=== PATIENT | female | born 1985 | race Two or more races ===

== ENCOUNTER 2018-01-19 23:51 | Emergency (ER) | payer BC ==
--- NOTE | 2018-01-20 00:33 | OBHP ---
Datetime: 01/20/2018 00:28 IP Adm Impression: Term, intrauterine IP Admit Plan: Discharge home Admit Comment, IP Provider: at 39weks came with c/o lof on coughing, no ctxs, vb,+fm. pt has be en on /off coighing obhc primi pmh den'med pnv all nkda psh de soch ee neg pooling, neg nitra a/p at 39week r/o rom dc home labor g po hy f/u omd in 2 day Pelvic Type - PN: Adequate Extremities - PN: Normal Abdomen - PN: Normal Back - PN: Normal Breast - PN: Normal Lungs - PN: Normal Heart - PN: Normal Thyroid - PN: Normal Neurologic - PN: Normal HEENT - PN: Normal General - PN: Normal FHR - Baseline A Provider: 130 Contraction Comments Provider: none EGA AdmitDate IP: 39.0 Vital Signs Provider: Reviewed; Within Normal Limits IP Chief Complaint: Suspected ruptured membranes NICHD Variability Prov Fetus A: Moderate 6-25bpm NICHD Accel Fetus A IP Provider: 15X15 FHR Category Provider Fetus A: Category I Dilatation, Provider: 0 Effacement, Provider: 0 Station, Provider: -3 Genitourinary Exam: Normal DTRs - PN: Normal
--- NOTE | 2018-01-20 00:33 | OBDCSUM ---
Datetime: 01/20/2018 00:30 Discharged to, Provider: Home Follow up at, Provider: 2 da Follow up in weeks, Provider: dr field Discharge Comment, Provider: dc home labor g po hy f/u omd in 2 day Discharge Diagnosis Prov Other: 39 we r/o rom
[2018-01-20 05:08] VITALS: BP 124/79; PULSE 61; RESP 20; TEMP 97.3
== END 2018-01-20 00:40 | disposition home or self-care (01) ==
LOC: C.EROB 23:51
DX: O26.893 Other specified pregnancy related conditions, third trimester (principal); Z3A.39 39 weeks gestation of pregnancy; R05 Cough

== ENCOUNTER 2018-01-23 06:55 | Inpatient (IN) | payer BC ==
[2018-01-23] MEDS ORDERED: Lactated Ringer's 1,000 ML IV SCH (07:45)
[2018-01-23 09:01] LABS: BASO % 0.3 % (0.0-2.0); EOS # 0.1 K/uL (0.0-0.7); EOS % 0.8 % (0.0-4.0); HEMOGLOBIN 12.6 g/dL (11.0-16.0); LYMPH # 1.9 K/uL (1.0-4.3); LYMPH % 21.3 % (20.0-40.0); MEAN CORPUSCULAR HEMOGLOBIN 31.2 pg (27.0-31.0); MEAN CORPUSCULAR HGB CONC 34.1 g/dL (33.0-37.0); MEAN PLATELET VOLUME 9.1 fL (7.2-11.7); MONO # 0.6 K/uL (0.0-0.8); MONO % 6.5 % (0.0-10.0); NEUT # 6.3 K/uL (1.8-7.0); NEUT % 71.1 % (50.0-75.0); RBC 4.03 Mil/uL (3.80-5.20); WHITE BLOOD COUNT 8.8 K/uL (4.8-10.8)
[2018-01-23 09:03] LABS: MEAN CELL VOLUME 91.4 fL (81.0-99.0)
[2018-01-23 09:14] LABS: ALBUMIN 3.5 g/dL (3.5-5.0); ALT/SGPT 10 U/L (9-52); AST/SGOT 35 U/L (14-36); BLOOD UREA NITROGEN 7 mg/dL (7-17); CALCIUM 9.6 mg/dl (8.6-10.4); GFR AFRICAN-AMERICAN > 60; GFR NON-AFRICAN AMERICAN > 60
[2018-01-23 09:17] LABS: SQUAMOUS EPITHIAL 1 /hpf (0-5); URINE BACTERIA MANY (<OCC); URINE BILIRUBIN NEGATIVE (NEGATIVE); URINE BLOOD 3+ (NEGATIVE); URINE CLARITY Hazy (Clear); URINE COLOR Yellow (YELLOW); URINE GLUCOSE (UA) NORMAL (Normal); URINE LEUKOCYTE ESTERASE TRACE Leu/uL (Negative); URINE PROTEIN NEGATIVE (NEGATIVE); URINE UROBILINOGEN NORMAL mg/dL (0.2-1.0)
[2018-01-23] MEDS ORDERED: Oxytocin 30 UNIT 30 UNITS/500 ML BAG IV SCH (09:45)
--- NOTE | 2018-01-23 09:53 | OBADHP ---
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 all nkda psh denies social ee neg pooling, neg nitra a/p at 39.3 wks GA with prom admit to l=d npo, ivf admission labs cont toco and efm pain amaenent pt reevated irregular ctx augmentation piticion Pelvic Type - PN: Adequate Extremities - PN: Normal Abdomen - PN: Normal Back - PN: Normal Breast - PN: Not Done Lungs - PN: Normal Heart - PN: Normal Thyroid - PN: Not Done Neurologic - PN: Normal HEENT - PN: Normal General - PN: Normal Presentation-Admit: Vertex FHR - Baseline A Provider: 125 Membranes, Provider: Ruptured Gestation - Est Wks by US: 39.3 IP Hx Assessment: The History has been Reviewed and is Current IP Chief Complaint: Suspected ruptured membranes NICHD Variability Prov Fetus A: Moderate 6-25bpm FHR Category Provider Fetus A: Category I Dilatation, Provider: 3 Effacement, Provider: 50 Station, Provider: -2 Genitourinary Exam: Normal DTRs - PN: Normal EGA AdmitDate IP: 39.3 IP Adm Impression: Term, intrauterine IP Admit Plan: Admit to unit Datetime: 01/20/2018 00:28 Contraction Comments Provider: none Vital Signs Provider: Reviewed; Within Normal Limits NICHD Accel Fetus A IP Provider: [id number]
[2018-01-23] MEDS ORDERED: Oxytocin 30 UNIT 30 UNITS/500 ML BAG IV ONE (10:03)
--- NOTE | 2018-01-23 21:05 | OBPN ---
Datetime: 01/23/2018 20:51 IP Progress Impression: Normal progression of labor IP Progress Plan: Continue present management Membranes, Provider: Ruptured Contraction Comments Provider: q 2-3 min FHR - Baseline A Provider: 145 Gestation - Est Wks by US: 39.3 Presentation-Admit: Vertex IP Progress Note Comment: pt seen adn examiend for progression of labor complaining of pain 03/28 requestign epidural VSS VE: /-2 VTX, celarn A/P @ 39.3 wks G A in labor -anetheis conult -pitocion as per protocol -con ttooc and emf FHR Category Provider Fetus A: Category I NICHD Variability Prov Fetus A: Moderate 6-25bpm Dilatation, Provider: 5 Effacement, Provider: 80 Station, Provider: -2 Datetime: 01/20/2018 00:28 Vital Signs Provider: Reviewed; Within Normal Limits NICHD Accel Fetus A IP Provider: [id number]
[2018-01-23] MEDS ORDERED: Bupivacaine HCl/FentaNYL Cit 100 ML EPI ONE (21:21)
--- NOTE | 2018-01-24 02:17 | OBPN ---
Datetime: 01/24/2018 02:13 IP Progress Impression: Normal progression of labor IP Progress Plan: Continue present management Membranes, Provider: Ruptured FHR - Baseline A Provider: 150 Gestation - Est Wks by US: 39.4 Presentation-Admit: Vertex IP Progress Note Comment: pt seen and examind, occasinla variable adn early declerations. reprots pa in on left dise s/ pepdiural VSS VE 8100/-1 EM: 150/mod victoria intermitten variable, early with spotneaous return to baseline TOCO: q 2 min [place] as per protoocl A/P @ 39.4 wks GA in labor -cont pitocn as per protocal -anemteshsia -cont current managemnte -gbs propylaxis >18 hours ROM Vital Signs Provider: Reviewed; Within Normal Limits FHR Category Provider Fetus A: Category I NICHD Variability Prov Fetus A: Moderate 6-25bpm Dilatation, Provider: 8 Effacement, Provider: 100 Station, Provider: -1 NICHD Decel Fetus A IP Provider: Early
[2018-01-24] MEDS ORDERED: Penicillin G 5 Million Unit Vial IVPB ONE ×2 (02:20→02:21)
[2018-01-24] MEDS ORDERED: Oxycodone/Acetaminophen 5/325 mg Tab PO PRN ×2 (04:31)
[2018-01-24] MEDS ORDERED: Benzocaine/Menthol 20%-0.5% Topical Spray (60 ml) TOP PRN (04:31)
--- NOTE | 2018-01-24 04:33 | OBDS ---
MATERNAL INFORMATION Provider Comments: pt was fully dilated and pushing. atruamtic, spotnaous delivery of head, no nucha l cord noted. atrumatic, spontaneous delivery of anterior followed b posteriro shoulder followed by d eliveyr of the body. both oral and nasal passages of the baby were bulb suctioned. umbilical cord was clamped adn cut. baby handed to mother on abdomen with rn assistnace. cord blood collected adn sent x 2. Spontanoue sdlevery of intact placement with membrnes. fundus firm. good hemostasis. second degr ee perenal laceration repaierd with 2-0 and 3-0 chromic suture. Good hemostasis, no complications live [place] ifnat vertext presentation apgars 9,9 weight of 6lbs 6 ounces ebl 200ml no complications LABOR SUMMARY EDC: 01/27/2018 00:00 LABOR INFORMATION Onset of Labor: 01/23/2018 05:55 Group B Beta Strep: Negative MEMBRANES Membranes Rupture Method: Spontaneous Rupture of Membranes: 01/23/2018 05:55 Length of Rupture (hrs): 22.27 Amniotic Fluid Color: Clear Amniotic Fluid Amount: Moderate Amniotic Fluid Odor: Normal STAGES OF LABOR Stage 3 hrs: 0 Stage 3 min: 12 Total Time in Labor hrs: 22 Total Time in Labor min: 28 BABY A INFORMATION Infant Delivery Date/Time: 01/24/2018 04:11 Method of Delivery: Vaginal Born in Route : No : N/A Forceps: N/A Vacuum Extraction: N/A Shoulder Dystocia : No SHOULDER DYSTOCIA BABY A Delivery Date/Time: 01/24/2018 04:11 PRESENTATION/POSITION BABY A Presentation: Cephalic Cephalic Presentation: Vertex Vertex Position: Left Occipital Anterior Breech Presentation: N/A PLACENTA INFORMATION BABY A Placenta Delivery Time : 01/24/2018 04:23 Placenta Method of Delivery: Spontaneous Placenta Status: Delivered SCORES BABY A Heart Rate 1 min: >100 bpm Resp Effort 1 min: Good Cry Reflex Irritability 1 min: Cough or Sneeze or Pulls Away Muscle Tone 1 min: Active Motion Color 1 min: Body [place], Extremities Blue SCORE 1 MIN: 9 Heart Rate 5 min: >100 bpm Resp Effort 5 min: Good Cry Reflex Irritability 5 min: Cough or Sneeze or Pulls Away Muscle Tone 5 min: Active Motion Color 5 min: Body [place], Extremities Blue SCORE 5 MIN: 9 INFORMATION BABY A Gestational Age at Delivery: 39.4 Gestational Status: Term Infant Outcome : Liveborn Condition : Stable Sex: Female IDENTIFICATION/MEDS BABY A ID Band Number: [id number] ID Band Location: Left Leg; Left Arm Sensor Applied: Yes Sensor Number: [id number] Sensor Location : Cord Clamp Vitamin K Given : Aquamephyton 1 mg IM Erythromycin Given: Given Both Eyes WEIGHT/LENGTH BABY A Birthweight (gms): 2905 Infant Weight (lb): 6 Infant Weight (oz): 6 Length Inches: 19.50 Length cms: 49.5 CORD INFORMATION BABY A No. Cord Vessels: 3 Nuchal Cord : N/A Cord Blood Taken: N/A ASSESSMENT BABY A Complications: None Physical Findings at Delivery: Within Normal Limits Respirations: Appears Normal Shipping And Receiving Coordinator/ALS Called : No Care By: Dr Freeman Transferred To: Remains with Mother
[2018-01-24] MEDS: Multiple Vitamins Tab PO SCH (10:15)
[2018-01-25 07:47] LABS: BASO % 0.1 % (0.0-2.0); EOS # 0.1 K/uL (0.0-0.7); EOS % 0.4 % (0.0-4.0); LYMPH % 11.7 % (20.0-40.0); MEAN CELL VOLUME 91.7 fL (81.0-99.0); MEAN CORPUSCULAR HEMOGLOBIN 31.2 pg (27.0-31.0); MEAN PLATELET VOLUME 8.8 fL (7.2-11.7); MONO # 0.9 K/uL (0.0-0.8); MONO % 5.2 % (0.0-10.0); NEUT # 14.4 K/uL (1.8-7.0); NEUT % 82.6 % (50.0-75.0); RBC 3.13 Mil/uL (3.80-5.20); RED CELL DISTRIBUTION WIDTH 14.7 % (11.5-14.5)
[2018-01-25 07:54] LABS: HEMOGLOBIN 9.8 g/dL (11.0-16.0); WHITE BLOOD COUNT 17.4 K/uL (4.8-10.8)
[2018-01-25] MEDS: Multiple Vitamins Tab PO SCH (09:24)
[2018-01-25 14:16] LABS: BASO % 0.1 % (0.0-2.0); EOS # 0.1 K/uL (0.0-0.7); EOS % 0.3 % (0.0-4.0); HEMOGLOBIN 10.7 g/dL (11.0-16.0); LYMPH # 2.2 K/uL (1.0-4.3); LYMPH % 11.9 % (20.0-40.0); MEAN CORPUSCULAR HEMOGLOBIN 30.9 pg (27.0-31.0); MEAN CORPUSCULAR HGB CONC 33.6 g/dL (33.0-37.0); MEAN PLATELET VOLUME 8.7 fL (7.2-11.7); MONO # 0.6 K/uL (0.0-0.8); MONO % 3.3 % (0.0-10.0); NEUT # 15.8 K/uL (1.8-7.0); NEUT % 84.4 % (50.0-75.0); RBC 3.46 Mil/uL (3.80-5.20); RED CELL DISTRIBUTION WIDTH 14.8 % (11.5-14.5); WHITE BLOOD COUNT 18.7 K/uL (4.8-10.8)
[2018-01-25] MEDS ORDERED: Lactated Ringer's 1,000 ML IV SCH (15:00)
[2018-01-25] MEDS: AMPicillin 2 GM in Sodium Chloride 0.9% 100 ML IVPB SCH ×2 (15:58→21:47)
[2018-01-25] MEDS: Gentamicin 80 mg in 0.9% NS 80 MG/100 ML BAG IVPB SCH (16:59)
[2018-01-25] MEDS ORDERED: Hydrocortisone 2.5% Rectal Cream(30 gm) PR SCH (18:00)
--- NOTE | 2018-01-25 22:23 | OBPPN ---
Datetime: 01/25/2018 22:04 PP Pain Prov: Within normal limits PP Nausea Prov: Denies PP Flatus Prov: Yes PP BM Prov: No PP Breasts Prov: Normal PP Heart Prov: Normal PP Lungs Prov: Normal PP Abdomen/Uterus Prov: Normal PP Lochia Prov: Normal PP Vulva/Perineum Prov: Normal PP CVA Tenderness Prov: Normal PP Extremities Prov: Normal PP C/S Incision Prov: Not Applicable PP Progress Prov: Normal PP Comments Phys Exam Prov: abd: sfot, mild uteirne tnecneres no guaridng no tbuend ve: minial lochai, non cuosl smelilng PP Impression Prov: Normal progression PP Progress Note Prov: pt seen adn eexamiend and reprot pain contorlled ambulating voiding +breats f eeding VSS PE see above A/P s/p PPD #1 with suspected endoemtetriis amp/gen am lab pain managment Vital Signs Provider PP: Reviewed; Within Normal Limits
[2018-01-26] MEDS: Gentamicin 80 mg in 0.9% NS 80 MG/100 ML BAG IVPB SCH ×2 (00:55→09:11)
[2018-01-26] MEDS: AMPicillin 2 GM in Sodium Chloride 0.9% 100 ML IVPB SCH ×2 (03:42→09:58)
[2018-01-26 08:58] LABS: BASO % 0.2 % (0.0-2.0); EOS # 0.1 K/uL (0.0-0.7); EOS % 0.8 % (0.0-4.0); HEMOGLOBIN 10.4 g/dL (11.0-16.0); LYMPH % 15.6 % (20.0-40.0); MEAN CELL VOLUME 92.5 fL (81.0-99.0); MEAN CORPUSCULAR HEMOGLOBIN 31.1 pg (27.0-31.0); MEAN CORPUSCULAR HGB CONC 33.6 g/dL (33.0-37.0); MEAN PLATELET VOLUME 8.9 fL (7.2-11.7); MONO # 0.5 K/uL (0.0-0.8); MONO % 4.2 % (0.0-10.0); NEUT # 9.9 K/uL (1.8-7.0); NEUT % 79.2 % (50.0-75.0); RBC 3.33 Mil/uL (3.80-5.20); WHITE BLOOD COUNT 12.6 K/uL (4.8-10.8)
[2018-01-26 09:15] LABS: ALB/GLOB RATIO 1.1 (1.0-2.1); ALBUMIN 3.2 g/dL (3.5-5.0); ALT/SGPT 21 U/L (9-52); AST/SGOT 35 U/L (14-36); BLOOD UREA NITROGEN 4 mg/dL (7-17); CALCIUM 8.6 mg/dl (8.6-10.4); GFR AFRICAN-AMERICAN > 60; GFR NON-AFRICAN AMERICAN > 60
[2018-01-26] MEDS: Multiple Vitamins Tab PO SCH (09:57)
[2018-01-26 10:58] VITALS: BP 116/81; PULSE 66; RESP 18; TEMP 99.9; O2SAT 97
== END 2018-01-26 13:30 | disposition home or self-care (01) | DRG 775 ==
LOC: C.EROB 06:55 → C.4D 07:23 → C.4M 01-24 06:52
PROVIDERS: ADMIT Obstetrics & Gynecology; ATTEND Obstetrics & Gynecology
PROC: 10E0XZZ Delivery of Products of Conception, External Approach (ICD-10-PCS; principal; 2018-01-23)
PROC: 0KQM0ZZ Repair Perineum Muscle, Open Approach (ICD-10-PCS; 2018-01-23)
DX: O42.92 Full-term premature rupture of membranes, unspecified as to length of time between rupture and onset of labor (principal); Z37.0 Single live birth; Z3A.39 39 weeks gestation of pregnancy; O70.1 Second degree perineal laceration during delivery